=== PATIENT | male | born 1995 | race African-American/Black ===

== ENCOUNTER 2017-09-01 11:40 | Emergency (ER) | payer OTHER ==
[2017-09-05 00:06] LABS: MUMPS VIRUS IgM ANTIBODY <0.80 AU (0.00-0.79)
== END 2017-09-01 13:51 | disposition home or self-care (01) ==
LOC: M ED 11:40
DX: J03.90 Acute tonsillitis, unspecified (principal); R22.0 Localized swelling, mass and lump, head
CPT/HCPCS: 86735

== ENCOUNTER 2018-02-05 03:17 | Emergency (ER) | payer OTHER ==
[2018-02-05] MEDS: diphenhydrAMINE INJ 50MG/ML VIAL (J1200) IV ×2 (05:00)
[2018-02-05] MEDS: NS 1,000 ML IV ×2 (05:00)
[2018-02-05] MEDS: KETOROLAC 30 MG/ML VIAL (J1885) IV ×2 (05:00)
[2018-02-05] MEDS: METOCLOPRAMIDE INJ 10MG/2ML VIAL (J2765) IV ×2 (05:00)
== END 2018-02-05 06:38 | disposition home or self-care (01) ==
LOC: M ED 03:17
DX: G43.909 Migraine, unspecified, not intractable, without status migrainosus (principal)
CPT/HCPCS: J1200

== ENCOUNTER 2018-02-08 17:07 | Emergency (ER) | payer OTHER ==
[2018-02-08] MEDS: KETOROLAC 30 MG/ML VIAL (J1885) IV (15:45)
[2018-02-08] MEDS: NS 1,000 ML IV (15:45)
[2018-02-08] MEDS: diphenhydrAMINE INJ 50MG/ML VIAL (J1200) IV (15:45)
[2018-02-08] MEDS: METOCLOPRAMIDE INJ 10MG/2ML VIAL (J2765) IV (15:45)
== END 2018-02-08 17:25 | disposition home or self-care (01) ==
LOC: M ED 17:07
DX: G43.909 Migraine, unspecified, not intractable, without status migrainosus (principal); Z79.1 Long term (current) use of non-steroidal anti-inflammatories (NSAID)
CPT/HCPCS: J1200

== ENCOUNTER 2018-11-25 11:28 | Emergency (ER) | payer OTHER ==
[~2018-11-25] VITALS: Ht 175.3 cm; Wt 90.0 kg
[~2018-11-25 11:28] MED LIST: ACET-683 PO; IBUP-1022 PO; IBUP40TA PO; NAPR-885 PO; PENI500T GT
[2018-11-25] MEDS ORDERED: LIDOCAINE 5% (LIDODERM) PATCH TD ONE (12:45)
[2018-11-25] MEDS ORDERED: IBUPROFEN 800 MG TAB PO ONE (12:45)
--- NOTE | 2018-11-25 13:22 | REP ---
CT of the brain without IV contrast: There is no subdural or epidural hematoma. There is no edema, mass effect or midline shift. The ventricles are normal size and midline. There is no other acute intracranial hemorrhage. The visualized paranasal sinuses and mastoid air cells are clear. Impression: There is no hemorrhage, acute infarct or mass. Negative CT study of the brain. Electronically Signed by Chiki Jones MD 11/25/2018 01:13 P
--- NOTE | 2018-11-25 13:25 | REP ---
Right knee five views : There is no fracture or dislocation. Mineralization and joint spaces are normal. There are no calcifications or foreign bodies. Impression: Negative right knee . Electronically Signed by Chiki Jones MD 11/25/2018 01:17 P
--- NOTE | 2018-11-25 13:51 | REP ---
MAXILLOFACIAL CT WITHOUT CONTRAST: HISTORY: Injury. Minimal mucosal thickening is present in the ethmoid and maxillary sinuses. The remaining sinuses are clear. Mucosal thickening involves the ostiomeatal units. The middle and inferior nasal turbinates are partially paradoxical. The nasal septum is midline. The cribriform plate, medial rene of the orbits and optic canals are intact. The carotid canals form a segment of the posterolateral rene of the sphenoid sinus. The sphenoid sinus septum inserts into the right internal carotid canal wall. There is no fracture. IMPRESSION: Sinus mucosal thickening as described above. Electronically Signed by Vinny Macedo MD 11/25/2018 01:54 P
[2018-11-25 14:09] VITALS: BP 151/83
[2018-11-25] MEDS ORDERED: ACET-897 PO (14:20)
[2018-11-25] MEDS ORDERED: CYCL10TA PO (14:40)
== END 2018-11-25 14:25 | disposition home or self-care (01) ==
LOC: M ED 11:28
DX: S05.12XA Contusion of eyeball and orbital tissues, left eye, initial encounter (principal); S83.91XA Sprain of unspecified site of right knee, initial encounter; Y04.8XXA Assault by other bodily force, initial encounter; Y92.89 Other specified places as the place of occurrence of the external cause; R44.8 Other symptoms and signs involving general sensations and perceptions; M54.6 Pain in thoracic spine; M54.5 Low back pain; R51 Headache; Z88.8 Allergy status to other drugs, medicaments and biological substances